=== PATIENT | male | born 1985 | race Asian ===

== ENCOUNTER 2016-09-02 04:33 | Emergency (ER) | payer OTHER ==
[~2016-09-02] VITALS: Ht 172.7 cm; Wt 61.2 kg
[2016-09-02] MEDS ORDERED: NKM (04:39)
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
[2016-09-02 04:56] VITALS: BP 125/84
[2016-09-02] MEDS ORDERED: IBUPROFEN600 MG ORAL (06:47)
[2016-09-02 06:55] VITALS: BP 129/82
--- NOTE | 2016-09-02 09:36 | Diagnostic Imaging Report ---
Indication: Right shoulder pain Technique: XRAY SHOULDER MIN 3V RIGHT Comparison: None Findings: There is no acute fracture or dislocation. There is an apparent chronic deformity of the right clavicle. Visualized right lung is clear. Bone mineralization is normal. Impression: No acute osseous abnormality.
--- NOTE | 2016-09-02 09:39 | Diagnostic Imaging Report ---
Indication: Facial pain Technique: CT maxillofacial was performed utilizing automated exposure control without intravenous contrast material. Axial and coronal images were generated. CT dose: Total DLP 567 mGycm; CTDI vol 28.2 mGy Comparison: None Findings: No acute fracture is identified. The mandible, midface and nasal bones are intact. The orbits are unremarkable. There is minimal mucosal thickening of the left inferior maxillary sinus. Dental disease is noted. Impression: No acute fracture. Dental disease. Clinical correlation recommended. The CT scanner at [facility] is accredited by the [employer] and the scans are performed using protocols designed to limit radiation exposure to as low as reasonably achievable to attain images of sufficient resolution adequate for diagnostic evaluation.
--- NOTE | 2016-09-04 11:05 | Diagnostic Imaging Report ---
Indication: Head pain Technique: Continuous helical CT scanning of the head was performed utilizing automated exposure control without intravenous contrast material. Axial and coronal reconstructions were obtained. Comparison: None available CT dose: Total DLP 1414 mGycm; CTDI vol 70.4 mGy Findings: There is no acute intracranial hemorrhage, mass effect or cortical edema. The ventricles, cisterns and sulci are normal limits. The posterior fossa and fourth ventricle are unremarkable. Sellar and suprasellar regions are grossly unremarkable. There is no skull fracture. Impression: No evidence of acute intracranial hemorrhage, mass effect or cortical edema. No skull fracture. The CT scanner at [facility] is accredited by the [employer] and the scans are performed using protocols designed to limit radiation exposure to as low as reasonably achievable to attain images of sufficient resolution adequate for diagnostic evaluation.
== END 2016-09-02 07:05 ==
LOC: EMR 04:50
DX: S00.83XA Contusion of other part of head, initial encounter (principal); S40.011A Contusion of right shoulder, initial encounter; S80.01XA Contusion of right knee, initial encounter; S00.81XA Abrasion of other part of head, initial encounter; Y04.0XXA Assault by unarmed brawl or fight, initial encounter; Y92.9 Unspecified place or not applicable
CPT/HCPCS: 70450; 70486; 99284